=== PATIENT | male | born 1975 | race Caucasian/White ===

== ENCOUNTER 2016-07-07 11:19 | Emergency (ER) | payer OTHER | END 2016-07-07 12:20 | disposition home or self-care (01) | LOC: ER1 11:19 | DX: S20.369A Insect bite (nonvenomous) of unspecified front wall of thorax, initial encounter (principal); F17.210 Nicotine dependence, cigarettes, uncomplicated; W57.XXXA Bitten or stung by nonvenomous insect and other nonvenomous arthropods, initial encounter | CPT/HCPCS: 99281 ==

== ENCOUNTER 2016-09-05 08:35 | Emergency (ER) | payer OTHER ==
[2016-09-05 09:59] LABS: RED BLOOD COUNT 5.17 M/UL (4.20-5.50); WHITE BLOOD COUNT 7.6 K/UL (4.5-11.0)
[2016-09-05 10:45] LABS: BUN/CREATININE RATIO 12 (0-10)
== END 2016-09-05 12:58 | disposition home or self-care (01) ==
LOC: ER1 08:35
PROVIDERS: Physician Assistant
DX: N13.2 Hydronephrosis with renal and ureteral calculous obstruction (principal); F17.210 Nicotine dependence, cigarettes, uncomplicated
CPT/HCPCS: 36415; 80053; 81001; 85025; 96361; 96374; 96375; 96376; 99284; J1885; J2270; J2405

== ENCOUNTER 2021-03-31 10:52 | Emergency (ER) | payer OTHER ==
[~2021-03-31 10:52] MED LIST: DOXYCYCLINE HY100 M2 PO; FLEXERIL 10 MG10 MG PO; FLOMAX0.4 MG PO; PERCOCET 10-321 EACH PO; PERCOCET 5/325 T1 EA PO; PERCOCET 7.5-31 EACH PO; PHENERGAN 12.12.5 M1 PO; PHENERGAN 25 MG25 M1 PO; VANCOMYCIN1 GM/2501 IV; ZOFRAN ODT4 MG PO; ZOFRAN4 MG PO; ZYVOX600 MG PO
[2021-03-31] MEDS ORDERED: NAPROSYN500 MG PO ×2 (12:23→12:38)
[2021-03-31] MEDS ORDERED: CYCLOBENZAPRINE10 MG PO ×2 (12:23→12:38)
== END 2021-03-31 12:00 | disposition home or self-care (01) ==
LOC: ER1 10:52
DX: S46.912A Strain of unspecified muscle, fascia and tendon at shoulder and upper arm level, left arm, initial encounter (principal); F17.200 Nicotine dependence, unspecified, uncomplicated; X58.XXXA Exposure to other specified factors, initial encounter
CPT/HCPCS: 73030; 96372; 99283; J1885